=== PATIENT | male | born 1940 | race Caucasian/White ===

== ENCOUNTER 2017-04-05 17:06 | Inpatient (IN) ==
--- NOTE | 2017-04-05 17:37 | Emergency Department Report ---
SOB HPI - General Chief Complaint: Shortness of Breath/Dyspnea Stated Complaint: SOA Time Seen by Provider: 04/05/17 17:18 Source: patient Mode of arrival: ambulatory Limitations: no limitations - History of Present Illness He has a history of MDS. Had labs drawn yesterday and Hgb was 6.9. He was offered to get a blood transfusion but he states that he was feeling fine at that time so he declined. Today he was walking out of his office and felt light headed and SOA and like he was going to fall. He came to ER for evaluation. Does not have any other symptoms at this time. MD Complaint: shortness of breath Onset (ago): hour(s) Severity: moderate Consistency/Duration: constant Relieving factors: rest Exacerbating factors: exertion Associated symptoms: denies other symptoms Treatment prior to arrival: none - Related Data Home Medications Medication Instructions Recorded Confirmed Aspirin [Aspir 81] 81 mg PO DAILY #0 10/07/16 04/05/17 Ferrous Sulfate 325 mg PO BIDWM #0 10/07/16 04/05/17 Insulin Detemir [Levemir Flextouch] 10 unit SQ HS #0 10/07/16 04/05/17 Lisinopril 2.5 mg PO DAILY #0 10/07/16 04/05/17 Pnv95/Ferrous Fumarate/FA 1 tab PO DAILY #0 10/07/16 04/05/17 [ Tablet] Levothyroxine Sodium 125 mcg PO DAILY 04/05/17 04/05/17 Simvastatin 20 mg PO HS 04/05/17 04/05/17 Previous Rx's Medication Instructions Recorded metformin 1,000 mg tablet 1,000 mg PO BIDWM #180 tab 03/30/17 Allergies Allergy/AdvReac Type Severity Reaction Status Date / Time No Known Drug Allergies Allergy Mild Verified 04/05/17 17:16 Review of Systems Constitutional: Reports: weakness. Denies: fever, chills Cardiovascular: Reports: dyspnea on exertion. Denies: chest pain, palpitations , edema Respiratory: Reports: dyspnea. Denies: cough, wheezes Gastrointestinal: Denies: abdominal pain, nausea, vomiting, diarrhea Integumentary: Denies: rash Neurological: Denies: headache, weakness, numbness, paresthesias [facility] Patient Stated Medical History Cataracts Yes Diabetes Mellitus Type 2 Yes Other Hematologic Yes: [facility] Medical History Granuloma annulare (Chronic Medical) Hypothyroidism (Chronic Medical) HTN (hypertension) (Chronic Medical) Hyperlipidemia (Chronic Medical) Diabetes (Chronic Medical) Waldenstrom Macroglobinemia Surgical History: TONSILLECTOMY. LEFT HIP SURGERY-1991. CATARACT SURGERY (both ). Right acetabular ORIF (01/15)--Dr. Ruff Family History: Family History Mother Diabetes Father Heart disease Brother Cancer - Social History Smoking status: Never smoker Physical Exam - Limitations Limitations: no limitations - General General appearance: alert, in no apparent distress - Normal Exams: Neck:: Full range of motion, without adenopathy, JVD, bruits or thyromegaly Chest/Respirations:: Clear all ruano, with good airflow, and symmetry bilaterally Cardiovascular:: Regular rate and rhythm, without murmur or gallop, Pulses 2+ all extremities, capillary refill, <2 seconds all extremities Abdomen:: Bowel sounds positive, soft, non-tender, non-distended, no hepatosplenomegaly, masses or bruits noted Lymphatic:: No lymphadenopathy, or lymphedema noted Integumentary:: No rashes, hives, or bruising noted Neurological:: Patient is alert, and oriented Psychiatric:: Patient exhibits, appropriate attention, emotion and affect - Skin Skin exam: Present: other (pale) Course Vital Signs Temperature 98.2 F 04/05/17 17:10 Pulse Rate 63 04/05/17 17:10 Respiratory Rate 22 04/05/17 17:10 Blood Pressure 140/63 H 04/05/17 17:10 Pulse Oximetry 100 04/05/17 17:10 Temperature 98.2 F 04/05/17 17:10 Pulse Rate 55 L 04/05/17 20:45 Respiratory Rate 22 04/05/17 17:10 Blood Pressure 130/58 04/05/17 20:30 Pulse Oximetry 100 04/05/17 20:45 Shortness of Breath/Dyspnea - [facility] Narrative Medical decision making narrative: DD: anemia, dyspnea, pneumonia, pneumo, PE His hgb today is 6.6. Vital are stable. Labs otherwise are negative. I did talk with Dr Duckworth and he does agree patient needs blood transfusion. He is ok with outpatient infusion. Will write the orders and then patient can go home. Calcium did come back elevated at 13.6. Last Calcium was taken in early February and was 10.2. Did talk with Dr Duckworth about this and he would like patient admitted. Spoke with Dr Noriega and he will admit at this time. - Lab Data Attestation: I reviewed the patient's lab results. Result diagrams: 04/05/17 17:46 04/05/17 17:46 Lab Results 04/05/17 04/05/17 04/05/17 Range/Units 17:46 17:46 18:36 WBC 4.4 L (4.5-11.0) T/MM3 RBC 1.99 L (4.50-5.90) M/MM3 Hgb 6.6 L (13.5-17.5) GM/DL Hct 21.8 L (41-53) % MCV 109.5 H (80-100) UM3 MCH 33.2 (26-34) UUG MCHC 30.3 L (31-37) GM/DL RDW Std Deviation 67.7 H (36.9-50.2) FL Plt Count 158 (130-400) T/MM3 MPV 10.7 (9.4-12.4) UM3 Immature Gran % (Auto) 1.4 H (0.0-0.5) % Neut % (Auto) 53.0 (33-66) % Lymph % (Auto) 24.3 (23-45) % [place] % (Auto) 18.5 H (0-9.0) % Eos % (Auto) 2.1 (0-4) % Baso % (Auto) 0.7 (0-2) % Neut # 2.3 (1.8-7.7) T/MM3 Lymph # 1.1 (1-4.8) T/MM3 [place] # 0.8 (0-0.8) T/MM3 Eos # 0.1 (0-0.5) T/MM3 Baso # 0.0 (0-0.2) T/MM3 Abs Immat Gran (auto) 0.06 H (0.00-0.03) T/MM3 Turbidity < 20 (0-20) Sodium 140 (134-144) MEQ/L Potassium 4.0 (3.6-5) MEQ/L Chloride 103 (98-107) MEQ/L Carbon Dioxide 29 (22-30) MEQ/L Anion Gap 8 (5-15) MEQ/L BUN 26.0 H (9-20) MG/DL Creatinine 1.3 (0.8-1.5) MG/DL GFR Calculation 54 BUN/Creatinine Ratio 20 (6-26) RATIO Glucose 124 H (75-110) MG/DL Calculated Osmolality 275 (261-280) MOSM/KG Calcium 13.5 H* (8.4-10.2) MG/DL Icterus Index < 2 (0-7) Specimen Hemolysis < 15 (0-25) Ur Collection Type Urine, clean catch Urine Color Yellow (YELLOW) Urine Clarity Clear Urine pH 7.0 (5.0-8.0) Ur Specific [place] 1.015 (1.015-1.025) Urine Protein Negative (NEGATIVE) Urine Glucose (UA) Negative (NEGATIVE) Urine Ketones Negative (NEGATIVE) Urine Occult Blood Negative (NEGATIVE) Urine Nitrate Negative (NEGATIVE) Urine Bilirubin Negative (NEGATIVE) Urine Urobilinogen 1.0 (NORMAL) EU/DL Ur Leukocyte Esterase Negative (NEGATIVE) Urinalysis Comment Microscopic not ind. Blood Type Antibody Screen Crossmatch (AHG) 04/05/17 Range/Units 19:02 WBC (4.5-11.0) T/MM3 RBC (4.50-5.90) M/MM3 Hgb (13.5-17.5) GM/DL Hct (41-53) % MCV (80-100) UM3 MCH (26-34) UUG MCHC (31-37) GM/DL RDW Std Deviation (36.9-50.2) FL Plt Count (130-400) T/MM3 MPV (9.4-12.4) UM3 Immature Gran % (Auto) (0.0-0.5) % Neut % (Auto) (33-66) % Lymph % (Auto) (23-45) % [place] % (Auto) (0-9.0) % Eos % (Auto) (0-4) % Baso % (Auto) (0-2) % Neut # (1.8-7.7) T/MM3 Lymph # (1-4.8) T/MM3 [place] # (0-0.8) T/MM3 Eos # (0-0.5) T/MM3 Baso # (0-0.2) T/MM3 Abs Immat Gran (auto) (0.00-0.03) T/MM3 Turbidity (0-20) Sodium (134-144) MEQ/L Potassium (3.6-5) MEQ/L Chloride (98-107) MEQ/L Carbon Dioxide (22-30) MEQ/L Anion Gap (5-15) MEQ/L BUN (9-20) MG/DL Creatinine (0.8-1.5) MG/DL GFR Calculation BUN/Creatinine Ratio (6-26) RATIO Glucose (75-110) MG/DL Calculated Osmolality (261-280) MOSM/KG Calcium (8.4-10.2) MG/DL Icterus Index (0-7) Specimen Hemolysis (0-25) Ur Collection Type Urine Color (YELLOW) Urine Clarity Urine pH (5.0-8.0) Ur Specific [place] (1.015-1.025) Urine Protein (NEGATIVE) Urine Glucose (UA) (NEGATIVE) Urine Ketones (NEGATIVE) Urine Occult Blood (NEGATIVE) Urine Nitrate (NEGATIVE) Urine Bilirubin (NEGATIVE) Urine Urobilinogen (NORMAL) EU/DL Ur Leukocyte Esterase (NEGATIVE) Urinalysis Comment Blood Type O Positive Antibody Screen Negative Crossmatch (AHG) See Detail Disposition Clinical Impression: Anemia Qualifiers: Anemia type: unspecified type Qualified Code(s): D64.9 - Anemia, unspecified Disposition: 02 To [facility] Acute Care Condition: Stable Time of Disposition: 20:11 - Seen By: lizette
[2017-04-05] MEDS: SALINE FLUSH 10ml SYRINGE IVF PRN ×2 (17:40→21:49)
[2017-04-05] MEDS: NS 1,000 ML IV SCH (18:56)
[2017-04-05] MEDS ORDERED: ACETAMINOPHEN 325 MG TABLET PO PRN (21:03)
[2017-04-05] MEDS ORDERED: ONDANSETRON 4 MG/2 ML INJECTION IVP PRN (21:03)
[2017-04-05] MEDS ORDERED: NS FLUSH BAG 500ml IV PRN (21:31)
[2017-04-05] MEDS: NS FLUSH BAG 500ml IV PRN (21:48)
[2017-04-05 22:15] VITALS: BMI 22.5
--- NOTE | 2017-04-05 23:14 | History & Physical Report ---
<Vimal Noriega - Last Filed: 04/05/17 23:11> History of Present Illness Date: 04/05/17 Chief complaint: weak and short of breath HPI: This is a very nice 76 y/o male who is currently being followed by oncology for myelodysplastic syndrome The patient had lab work done yesterday with hg of 6.9 and was advised to get a blood transfusion. The patient respectfully declined and today had onset of dizziness and shortness of breath. Because of these prpogression of symptoms the patient presented to the ED and repeat labs demonstrated a hg of 6.6. Of greater concern was that his calcium was now 13.5. It turns out after further investigation by ED staff that this patient was recently diagnosed with Waldenstroms Macroglobuminemia. The patient at this time is to be admitted to address his anemia and his WM. Review of Systems Review of systems: no headache, no change in vision, no neck pain, no chest pain, is short of breath with any activity, no cough, no fever, chills or sweats, no abdomen pain , slight nausea without emesis, no change in bowel or bladder, no edema to legs , no focal neuro complatints, just profound weakness. a 10 point ROS otherwise negatie excpet for outlined above. [facility] Patient Stated Medical History Cataracts Yes Bronchitis Yes Diabetes Mellitus Type 2 Yes Other Hematologic Yes: [facility] Medical History Granuloma annulare (Chronic Medical) Hypothyroidism (Chronic Medical) HTN (hypertension) (Chronic Medical) Hyperlipidemia (Chronic Medical) Diabetes (Chronic Medical) Surgical History: TONSILLECTOMY. LEFT HIP SURGERY-1991. CATARACT SURGERY (both ). Right acetabular ORIF (01/15)--Dr. Ruff Family History: Family History Mother Diabetes Father Heart disease Brother Cancer - Social History Smoking status: Never smoker Substance use type: does not use Alcohol intake: former Alcohol intake frequency: former alcohol drinker Housing: house Household members: spouse Current occupational status: employed Current occupational exposures/hazards: No Does patient use chewing tobacco?: No Current residence: Apartment/Private Home Medications Home Medications Medication Instructions Recorded Confirmed Type Aspirin [Aspir 81] 81 mg PO DAILY #0 10/07/16 04/05/17 History Ferrous Sulfate 325 mg PO BIDWM #0 10/07/16 04/05/17 History Insulin Detemir [Levemir Flextouch] 10 unit SQ HS #0 10/07/16 04/05/17 History Lisinopril 2.5 mg PO DAILY #0 10/07/16 04/05/17 History Pnv95/Ferrous Fumarate/FA 1 tab PO DAILY #0 10/07/16 04/05/17 History [ Tablet] Levothyroxine Sodium 125 mcg PO DAILY 04/05/17 04/05/17 History Simvastatin 20 mg PO HS 04/05/17 04/05/17 History Allergies Allergy/AdvReac Type Severity Reaction Status Date / Time No Known Drug Allergies Allergy Mild Verified 04/05/17 17:16 Exam Vital Signs: Temperature 97.7 F 04/05/17 21:20 Pulse Rate 55 L 04/05/17 22:29 Respiratory Rate 18 04/05/17 22:29 Blood Pressure 127/58 04/05/17 21:20 Pulse Oximetry 99 04/05/17 22:29 Telemetry Rhythm: Sinus Rhythm Height/Weight/BMI: Height 1.78 m Weight 71.3 kg Body Mass Index 22.5 Comments: well developed well nourished male in mild distress appearing his stated age - Constitutional Present: mild distress, well nourished, well developed, average body habitus, cooperative - Routine HEENT Exam Head: Present: normocephalic, atraumatic Eye: Present: EOMI ENT: Present: mucous membranes dry - Routine Neck Exam Present: supple, full ROM - Routine Respiratory Exam Present: CTA bilaterally - Routine Cardiovascular Exam Present: RRR, no murmur - Routine Abdominal Exam Present: soft, normoactive bowel sounds - Routine Extremities Exam Present: no edema, full ROM - Routine Back/Spine/Pelvis Exam Back/Spine: Present: full ROM - Routine Skin Exam Present: intact, warm - Routine Neurological Exam Present: oriented X3, CN II-XII intact, moving all extremities. Absent: sensory deficit, motor deficit, altered mental status - Routine Psychiatric Exam Present: normal affect Results - Labs CBC & Chem 7: 04/05/17 17:46 04/05/17 17:46 Labs: reviewed and will be discussed below Assessment and Plan (1) MDS (myelodysplastic syndrome) Current visit: Yes Status: Acute 04/05/17 23:23 pateint with MDS under evaluation and treatment by local oncologist, patient is anemic secondary to this disease and will be discussed below (2) Anemia Current visit: Yes Status: Acute 04/05/17 23:24 patient's anemia is most likely a reflection of his MDS. typically only transfuse one unit at a time with his hg 6.6 and sig symptms will proceed with 2 units. repeat labs in am. no evidence to support acute gi blood loss. (3) Hypercalcemia of malignancy Current visit: Yes Status: Acute 04/05/17 23:25 this patient is recently diagnosed with Waldenstroms Macroglobulinemia. This is known to result in hypercalcemia. At this time scottie agressively hydrate overnight. repeat labs in the am. Anticipate the need for pamidronate but will let oncology recommend. (4) Waldenstrom macroglobulinemia Current visit: Yes Status: Acute 04/05/17 23:26 recently diagnosed, per onclolgy (5) DM type 2 (diabetes mellitus, type 2) Current visit: Yes Status: Acute 04/05/17 23:26 correctional plan for now. adjust therapy basedon needs. (6) Acute kidney injury Current visit: Yes Status: Acute 04/05/17 23:27 patient with increased cratinine, hydrate and repeat labs in the am. will try to determine baseline creatine. DVT Prophylaxis: SCD's GI Prophylaxis: Protonix Hospital Course Summary Disclaimer: The visit summary below is not to be considered part of the above Progress Note. <Bj Khan - Last Filed: 04/06/17 15:06> History of Present Illness Date: 04/06/17 [facility] Patient Stated Medical History Cataracts Yes Bronchitis Yes Diabetes Mellitus Type 2 Yes Other Hematologic Yes: [facility] Medical History Granuloma annulare (Chronic Medical) Hypothyroidism (Chronic Medical) HTN (hypertension) (Chronic Medical) Hyperlipidemia (Chronic Medical) Diabetes (Chronic Medical) Family History: Family History Mother Diabetes Father Heart disease Brother Cancer Exam Vital Signs: Temperature 96.8 F 04/06/17 07:32 Pulse Rate 53 L 04/06/17 08:00 Respiratory Rate 17 04/06/17 07:32 Blood Pressure 120/54 04/06/17 07:32 Pulse Oximetry 99 04/06/17 07:32 Height/Weight/BMI: Height 1.78 m Weight 71.3 kg Body Mass Index 22.5 Results - Labs CBC & Chem 7: 04/06/17 04:52 04/06/17 04:52 Assessment and Plan (1) Anemia Current visit: Yes Status: Acute (2) MDS (myelodysplastic syndrome) Current visit: Yes Status: Acute (3) Hypercalcemia of malignancy Current visit: Yes Status: Acute (4) Waldenstrom macroglobulinemia Current visit: Yes Status: Acute (5) DM type 2 (diabetes mellitus, type 2) Current visit: Yes Status: Acute (6) Acute kidney injury Current visit: Yes Status: Acute Resuscitation Status: Full Code Assessment and Plan: Have independently interviewed and examined pt. Chart reviewed. Reviewed above note and concur. CC: Weakness, dizziness HPI: 76 y/o male presents to ED secondary to weakness and dizziness. Was found to have MDS earlier this summer-report had anemia and went for a transfusion. On follow up from transfusion, hemoglobin not improved. Referred by Dr Jacobsen to Dr Dickens for oncological evaluation. MDS/Waldenstrom found. Had routine CBC on 04/04 - hemoglobin decreased to 6.9 at that time. Transfusion offered, but patient decline as was feeling well. The next day (04/05), patient started feeling more dizzy, worse with positional changes. Evaluated in ED - hemoglobin still low at 6.6, but serum calcium found to be high at 13.5. Previously calcium level was normal at 10.2. Admission recommended due to acute anemia and hypercalcemia of malignancy. Pt does note he has been feeling progressively more weak and SOA for the past few week. Nothing dramatic, really didn't feel much change. Denies cough, congestion, pain with breathing or sputum. No chest pressure, heaviness, pain, or palpitations. Denies LE edema. No nausea, ab pain, blood in stools or dark tarry sticky stools. Feels appetite normal, but reports his has commented he is eating less. No unilateral weakness or numbness. Vision/hearing stable. Urinating well with pain. PHMx: Type II DM, HTN, HDL, Hypothyroidism, MDS, Waldenstrom macroglobulinemia Allergies: NKDA Meds: see mar SHx: for 53 years. Lives in [place]. Quit smoking [address] Jacobsen PCP. FHx: Father at age 97 - had heart disease. Mother in MVA at age 77 - had DM ROS: as above. Remainder of 10 point ROS reviewed and negative. Exam Gen: WDWNWM Converses well. HEENT: NC/AT PERRLA EMOI no scleral icterus MMM Neck: supple, trachea midline, no rigidity Lungs: decreased bilaterally but normal air movement. No crackle or wheeze. Breaths comfortably on RA without distress CV: regular without murmur AB: soft nt/nd +BS EXT: no LE edema. Normal radial pulses bilaterally Skin: warm and dry MS: normal muscle mass and tone Neurological: CN II-XII intact. No focal deficits Psych: awake alert appropriate. Slight slowing of answers. No agitation or restlessness. Thoughts linear, converses well. Very pleasant to visit with. Lab: reviewed. Assessment Symptomatic anemia with HGB 6.6 Weakness - secondary to hypercalcemia and anemia Hypercalcemia of malignancy MDS Waldenstrom macroglobulinemia Type II DM HTN HDL Hypothyroidism Plan Inpatient admission secondary to anemia and hypercalcemia - anticipate greater than 2 midnights of care needed. Type cross and give 2 units pRBC secondary to significant anemia and MDS NS at 125cc/hr secondary to hypercalcemia. Monitor sugars SCD for DVT prevention Care to return to Dr Jacobsen at discharge. 04/06 Hemoglobin improve to 8.1 post transfusion. Sodium decreased to 12.5. Dr Dickens consulted - initiated Zometa to help decrease calcium. Bone survey obtained with is negative. Continue with IVF. Will hold on lisinopril currently as BP low normal. Restart metformin and simvastatin. Monitor blood counts and serum calcium. - Time spent with patient greater than 35 minutes Hospital Course Summary Disclaimer: The visit summary below is not to be considered part of the above Progress Note. Hospital Course: 04/05/14 - Inpatient admission Assessment Symptomatic anemia with HGB 6.6 Weakness - secondary to hypercalcemia and anemia Hypercalcemia of malignancy MDS Waldenstrom macroglobulinemia Type II DM HTN HDL Hypothyroidism Plan Inpatient admission secondary to anemia and hypercalcemia - anticipate greater than 2 midnights of care needed. Type cross and give 2 units pRBC secondary to significant anemia and MDS NS at 125cc/hr secondary to hypercalcemia. Monitor sugars SCD for DVT prevention Care to return to Dr Jacobsen at discharge. 04/06/17 Hemoglobin improve to 8.1 post transfusion. Sodium decreased to 12.5. Dr Dickens consulted - initiated Zometa to help decrease calcium. Bone survey obtained with is negative. Continue with IVF. Will hold on lisinopril currently as BP low normal. Restart metformin and simvastatin. Monitor blood counts and serum calcium.
[2017-04-06] MEDS: NS 1,000 ML IV SCH ×8 (04:23→20:43)
--- NOTE | 2017-04-06 08:01 | XRay Report ---
INDICATION: dyspnea PROCEDURE: CHEST 2-VIEWS UPRIGHT (PA & LAT) Encounter: Initial COMPARISON: None FINDINGS: The lungs are clear without evidence of focal abnormal airspace opacity. There is no pleural effusion or pneumothorax. Slight increased lucency in the right upper lung field. The heart size, mediastinal contours and pulmonary vascularity are within normal limits. Old healed fourth, fifth and sixth left posterior rib fractures. IMPRESSION: No acute cardiopulmonary disease. Possible emphysema. .
[2017-04-06] MEDS: ASPIRIN *EC* 81 MG TABLET PO SCH (08:22)
[2017-04-06] MEDS: LEVOTHYROXINE 125 MCG TABLET PO SCH (08:22)
[2017-04-06] MEDS ORDERED: ZOLEDRONIC ACID 4 MG/100 ML BAG IV ONE (10:44)
--- NOTE | 2017-04-06 11:57 | XRay Report ---
Indication: hypercalcemia and Waldenstrom PROCEDURE: XR bone survey, 1 yr to adult: Encounter: Initial Comparison: None Findings: AP and lateral views of the skull: No acute fracture. No lytic or blastic osseous lesions. AP and lateral views of the cervical spine: No acute fracture. Mild to moderate degenerative disk disease in the mid cervical spine. No lytic or blastic osseous lesions. AP and lateral views of the thoracic spine: No acute fracture or subluxation. No obvious lytic or blastic lesions. AP and lateral views of the lumbar spine: No acute fracture. Chronic L3 and L4 mild compression fractures. No obvious lytic lesion. AP view of the pelvis: Extensive bilateral iliac bone hardware. No gross lytic lesion. Old fractures. AP view of the right ribs: No acute displaced rib fracture. No lytic or blastic rib lesion. AP view of the left ribs: Old third through fifth posterior rib fractures. No acute fracture or obvious rib lesion. AP view of the right humerus: No acute fracture. No lytic lesions. AP view of the left humerus: No acute fracture. No lytic lesion. AP view of the right forearm: No acute fracture. No lytic lesion. AP view of the left forearm: No acute fracture. No lytic lesion. AP views of the right femur: No acute fracture. No lytic lesion. AP views of the left femur: No acute fracture. No lytic lesion. AP view of the right tibia and fibula: No acute fracture. No lytic lesion. AP view of the left tibia and fibula: No acute fracture. No lytic lesion. Impression: Negative skeletal survey. No lytic or blastic osseous metastatic disease seen. .
--- NOTE | 2017-04-06 15:12 | Consultation ---
CHIEF COMPLAINT Dizziness. HISTORY OF PRESENT ILLNESS This is a 76-year-old pleasant male patient with history of chronic anemia. His hemoglobin was in the range of 6-7. He was given blood transfusion. Workup for the anemia revealed a diagnosis of Waldenstrom macroglobulinemia. 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 His IgM was 2300. He presented yesterday with lightheadedness and a syncopal episode. His hemoglobin was down to 6.6. He was offered blood transfusion when his hemoglobin was 6.9, but he chose to wait. Unfortunately, today, he felt very weak and fainted. He was given two units of packed red cells and his hemoglobin went up to 8.1 with improvement of his energy. His lab showed high calcium of 13. Creatinine was 1.3. He was started on hydration - normal saline. Calcium is down to 12. He denies seizure. He has constipation. PAST MEDICAL HISTORY 1. Hypertension. 2. Dyslipidemia. 3. Diabetes mellitus. 4. Hypothyroidism. MEDICATION 1. Lisinopril 2.5 mg daily. 2. Metformin 1,000 mg twice a day. 3. Insulin. 4. Aspirin. 5. Levothyroxine 125 mcg daily. 6. Simvastatin 20 mg q.h.s. ALLERGIES No known drug allergies. SOCIAL HISTORY Nonsmoker. He has very good family support. He lives with his . REVIEW OF SYSTEMS GENERAL: He is very weak and tired, has improved since blood transfusion. RESPIRATORY: Shortness of breath during exertion, improved with blood transfusion. CARDIOVASCULAR: No chest pain. No palpitations. 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 No weakness or numbness in the extremities. GI: He has constipation. No nausea or vomiting. : No urinary symptoms. PHYSICAL EXAM GENERAL: He looks pale. He is not icteric. Not in acute distress. Seems comfortable sitting in a chair for his breakfast. LUNGS: Clear to auscultation. No wheezing. No crackles. CARDIOVASCULAR: No JVD. No murmur. ABDOMEN: Benign. No organomegaly. No masses. LYMPH SYSTEM: No cervical, supraclavicular, axillary or inguinal adenopathy. EXTREMITIES: No edema. SKIN: No rash. HEENT: Unremarkable. LAB CBC remarkable for hemoglobin of 6.6, up to 8.1 after transfusion. White count 4.1. Platelets normal. Creatinine 1.3. Calcium was 13, down to 12 with hydration. IgM 2300. IMAGING Chest x-ray negative. ASSESSMENT 1. Waldenstrom macroglobulinemia associated with severe symptomatic anemia and hypercalcemia. 2. 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 3. Comorbidities: Diabetes mellitus, hypertension and hypothyroidism. RECOMMENDATION AND PLAN 1. Blood transfusion as needed. 2. Continue normal saline hydration for the hypercalcemia. 3. Will give the patient Zometa IV x 1. 4. Close monitoring of electrolytes. 5. A skeletal survey. 6. The patient is scheduled for a CT scan of the chest, abdomen and pelvis as staging for the Waldenstrom. Will do the CT scan as outpatient to avoid giving him contrast during the hypercalcemia. 7. Will check parathyroid hormone and PTH-like peptide. 8. Will check cryoglobulins. MTDD
[2017-04-06] MEDS: METFORMIN 1,000 MG TABLET PO SCH (18:47)
[2017-04-06] MEDS: ASCORBIC ACID 500 MG TABLET PO SCH (18:47)
[2017-04-06] MEDS: FERROUS SULFATE 324 MG TABLET PO SCH (18:47)
[2017-04-06] MEDS: SIMVASTATIN 20 MG TABLET PO SCH (20:21)
[2017-04-06] MEDS: INSULIN ASPART 100unit/ml INJECTION SQ PRN (20:31)
[2017-04-06] MEDS: HYDROCODONE/APAP 5mg/325mg TABLET PO PRN (23:04)
[2017-04-07] MEDS: HYDROMORPHONE 2 MG/ML INJECTION IVP PRN ×2 (02:54→21:06)
[2017-04-07] MEDS: NS 1,000 ML IV SCH ×3 (04:43→21:13)
[2017-04-07] MEDS: LEVOTHYROXINE 125 MCG TABLET PO SCH (06:29)
[2017-04-07] MEDS: ASPIRIN *EC* 81 MG TABLET PO SCH (09:10)
[2017-04-07] MEDS: ASCORBIC ACID 500 MG TABLET PO SCH ×2 (09:10→17:15)
[2017-04-07] MEDS: FERROUS SULFATE 324 MG TABLET PO SCH ×2 (09:10→17:15)
[2017-04-07] MEDS: METFORMIN 1,000 MG TABLET PO SCH ×2 (09:10→17:15)
[2017-04-07] MEDS: INSULIN ASPART 100unit/ml INJECTION SQ PRN (15:31)
--- NOTE | 2017-04-07 18:57 | Progress Note ---
Subjective: Mr. Ward reports no dyspnea or exertional dyspnea today-improvement from a couple of days ago. He denied chest pain or palpitations. He is having some minor constipation but denied nausea. He describes some generalized achiness. He continues to feel slightly lightheaded intermittently and fatigued. He had difficulty urinating earlier rank straight catheterization but subsequently patient has had complete emptying of his bladder with minimal post void residuals. Nursing describes some restlessness and minor confusion overnight. Objective Vital signs: Temperature 98 F 04/07/17 15:22 Pulse Rate 56 L 04/07/17 16:00 Respiratory Rate 24 04/07/17 15:22 Blood Pressure 105/52 04/07/17 15:22 Pulse Oximetry 99 04/07/17 15:22 I/O 4135/1475 EXAM General-NAD, alert, cooperative HEENT-oropharynx clear, conjunctiva clear Lungs-respirations nonlabored, good airflow, breath sounds clear Cardiac-regular rhythm, S1-S2, 2/6 systolic murmur upper sternal borders Abd-soft, nontender, bowel sounds present Ext-without edema Skin-generalized pallor Neuro-MAEW - Height/Weight/BMI: Height 1.78 m Weight 73.8 kg Body Mass Index 22.5 Results - Labs CBC & Chem 7: 04/07/17 08:40 04/07/17 08:40 Labs: Calcium 9.1, phosphorus 2.3, magnesium 1.9 - Imaging and Cardiology skeletal survey Status: image reviewed by me ( present; radiology reports chronic compression fractures in the lumbar spine, old rib fractures, and degenerative disc disease. ) Assessment and Plan (1) Anemia Current visit: Yes Status: Acute (2) MDS (myelodysplastic syndrome) Current visit: Yes Status: Acute (3) Hypercalcemia of malignancy Current visit: Yes Status: Acute (4) Waldenstrom macroglobulinemia Current visit: Yes Status: Acute DVT Prophylaxis: SCD's Resuscitation Status: Full Code Assessment and Plan: Assessment: Symptomatic anemia with HGB 6.6 Weakness - secondary to hypercalcemia and anemia Hypercalcemia of malignancy MDS Waldenstrom macroglobulinemia Type II DM HTN HDL Hypothyroidism Urinary retention, transient Plan: Hemoglobin stable following transfusion of 2 units PRBC yesterday. Creatinine improved with hydration, calcium remains elevated but improving compared to admission. Continue IV fluids overnight and reassess electrolytes and hemoglobin in the morning. Discussed with Dr. Dickens-remainder of workup/therapy will be pursued as an outpatient. Blood sugars modestly elevated ranging from 123-188 today. Levemir remains on hold but corrective scale insulin available. Blood pressure stable. Small-volume urinary frequency reported earlier with associated urinary retention; straight catheter 1 and since that time voiding well. If hemoglobin stable and calcium improving further tomorrow morning anticipate discharge at that time. Laboratory data reviewed, skeletal survey and telemetry reviewed by myself, discussed with Dr. Dickens and nursing. Sepsis Assessment - Evaluation Sepsis screening result: No Definite Risk Hospital Course Summary Disclaimer: The visit summary below is not to be considered part of the above Progress Note. Hospital Course: 04/05/14 - Inpatient admission Assessment Symptomatic anemia with HGB 6.6 Weakness - secondary to hypercalcemia and anemia Hypercalcemia of malignancy MDS Waldenstrom macroglobulinemia Type II DM HTN HDL Hypothyroidism Plan Inpatient admission secondary to anemia and hypercalcemia - anticipate greater than 2 midnights of care needed. Type cross and give 2 units pRBC secondary to significant anemia and MDS NS at 125cc/hr secondary to hypercalcemia. Monitor sugars SCD for DVT prevention Care to return to Dr Jacobsen at discharge. 04/06/17 Hemoglobin improve to 8.1 post transfusion. Sodium decreased to 12.5. Dr Dickens consulted - initiated Zometa to help decrease calcium. Bone survey obtained with is negative. Continue with IVF. Will hold on lisinopril currently as BP low normal. Restart metformin and simvastatin. Monitor blood counts and serum calcium. 04/07/17 Hemoglobin stable following transfusion of 2 units PRBC yesterday. Creatinine improved with hydration, calcium remains elevated but improving compared to admission. Continue IV fluids overnight and reassess electrolytes and hemoglobin in the morning. Discussed with Dr. Dickens-remainder of workup/therapy will be pursued as an outpatient. Blood sugars modestly elevated ranging from 123-188 today. Levemir remains on hold but corrective scale insulin available. Blood pressure stable. Small-volume urinary frequency reported earlier with associated urinary retention; straight catheter 1 and since that time voiding well. If hemoglobin stable and calcium improving further tomorrow morning anticipate discharge at that time.
[2017-04-07] MEDS: SALINE FLUSH 10ml SYRINGE IVF PRN (21:06)
[2017-04-07] MEDS: SIMVASTATIN 20 MG TABLET PO SCH (21:07)
[2017-04-08] MEDS: HYDROMORPHONE 2 MG/ML INJECTION IVP PRN ×2 (00:56→06:14)
[2017-04-08] MEDS: INSULIN ASPART 100unit/ml INJECTION SQ PRN ×3 (02:04→14:29)
[2017-04-08] MEDS: NS 1,000 ML IV SCH (05:02)
[2017-04-08] MEDS: LEVOTHYROXINE 125 MCG TABLET PO SCH (06:17)
[2017-04-08] MEDS: FERROUS SULFATE 324 MG TABLET PO SCH (08:44)
[2017-04-08] MEDS: METFORMIN 1,000 MG TABLET PO SCH (08:44)
[2017-04-08] MEDS: ASCORBIC ACID 500 MG TABLET PO SCH (08:44)
[2017-04-08] MEDS: ASPIRIN *EC* 81 MG TABLET PO SCH (08:44)
[2017-04-08] MEDS ORDERED: NS FLUSH BAG 500ml IV PRN (09:47)
[2017-04-08 12:08] VITALS: RESP 16
[2017-04-08] MEDS: NS FLUSH BAG 500ml IV PRN (12:08)
[2017-04-08] MEDS ORDERED: BISACODYL 10 MG SUPPOSITORY RECTALLY ONE (13:36)
[2017-04-08] MEDS ORDERED: BISACODYL 10 MG SUPPOSITORY RECTALLY PRN (13:37)
[2017-04-08] MEDS: HYDROCODONE/APAP 5mg/325mg TABLET PO PRN (13:42)
[2017-04-08] MEDS ORDERED: POLYETHYL GLYCOL 3350 17gm PACKET PO SCH (13:45)
[2017-04-08 15:32] VITALS: BP 112/62; TEMP 96.9; O2SAT 99
[2017-04-08 15:50] VITALS: PULSE 68
--- NOTE | 2017-04-08 15:58 | Discharge Instructions ---
Discharge Plan - Med Rec/Dispo Referrals/Follow Up: Braulio Jacobsen DO [Family Provider] - 1 Week Krishan Dickens MD [Physician] - (His office will call you to schedule appointment when medication was available-he estimated it would be in 2-3 days) Prescriptions: New Ascorbic Acid [Vitamin C] 500 mg PO BIDWM tablet Polyethylene Glycol 3350 [Miralax] 17 gm PO DAILY #1 bottle Continue Lisinopril 2.5 mg PO DAILY #0 Insulin Detemir [Levemir Flextouch] 10 unit SQ HS #0 Pnv95/Ferrous Fumarate/FA [ Tablet] 1 tab PO DAILY #0 Aspirin [Aspir 81] 81 mg PO DAILY #0 Ferrous Sulfate 325 mg PO BIDWM #0 Simvastatin 20 mg PO HS Levothyroxine Sodium 125 mcg PO DAILY metformin 1,000 mg tablet 1,000 mg PO BIDWM #180 tab Discharge Instructions/Outpatient Orders: Final Provider Discharge Instructions Location: Determined By Patient - Disposition 01 Discharged Home, Self-Care
--- NOTE | 2017-04-08 16:06 | Discharge Summary ---
Discharge Information Date of admission: 04/05/17 20:36 Anticipated date of discharge: 04/08/17 Attending Physician: Bj Khan MD Primary care physician: Braulio Jacobsen DO Consults: Krishan Dickens - Procedures Procedures: Transfusion 3 units packed red blood cells - Laboratory Labs: 04/08/17 15:38 04/08/17 04:09 - Radiology Radiology: Chest x-ray on 04/05 demonstrated old healed left posterior rib fractures, possible emphysema, but no acute card or pulmonary disease. Osseous bone survey on 04/06/17 was negative for lytic or blastic metastatic disease. Incidental notations for degenerative disc disease in the cervical spine, chronic L3 and L4 compression fractures, old pelvic fractures with extensive bilateral iliac hardware, and old left rib fractures were made. History of Present Illness HPI: This is a very nice 76 y/o male who is currently being followed by oncology for myelodysplastic syndrome The patient had lab work done yesterday with hg of 6.9 and was advised to get a blood transfusion. The patient respectfully declined and today had onset of dizziness and shortness of breath. Because of these symptoms the patient presented to the ED and repeat labs demonstrated a hg of 6.6. Of greater concern was that his calcium was now 13.5. It turns out after further investigation by ED staff that this patient was recently diagnosed with Waldenstroms Macroglobuminemia. The patient at this time is to be admitted to address his anemia and his WM. Hospital Course This is a general summary of the patient's hospital course. For more details refer to the complete medical record. Hospital course: Assessment Symptomatic anemia with admission HGB 6.6 Weakness - secondary to hypercalcemia and anemia Hypercalcemia of malignancy Myelodysplastic syndrome Waldenstrom macroglobulinemia Type II DM HTN HDL Hypothyroidism Constipation Hospital course Inpatient admission secondary to anemia and hypercalcemia - anticipate greater than 2 midnights of care needed. Mr. Ward was admitted and treated with 2 units packed red blood cells initially with posttransfusion hemoglobin improving to 8.1. Hemoglobin drifted down to 7.4 on the morning of 04/08 and one additional unit of leuko-poor irradiated packed cells was given prior to discharge with hemoglobin of 8.2 following the third unit of packed cells. He was seen by Dr. Dickens during the hospitalization and hypercalcemia was treated with Zomata on 04/06 with progressive improvement in calcium over subsequent days. At discharge hemoglobin is 10.4. Remainder of electrolytes are unremarkable other than mild hypophosphatemia. Blood sugars were modestly elevated although it's noted that patient was not receiving his long-acting insulin during the hospitalization. This will resume at discharge. The patient's hospital course was complicated by a single episode of urinary retention requiring straight catheterization and some minor nocturnal confusion. He additionally complained of constipation for which MiraLAX was initiated. A Dulcolax suppository was administered on 04/08 with partial resolution of symptoms. The patient was felt stable for discharge after transfusion of the third unit of blood on 04/08. He reported ongoing fatigue but no exertional dyspnea or lightheadedness. He had no concerns other than residual constipation but indicated that his appetite was good. Patient is alert and cooperative. Respirations are nonlabored with good airflow and abdomen is benign. The patient is to follow up with Dr. Dickens on Sunday or Sunday of this week for repeat blood work and to initiate chemotherapy for Bárbara's terms. Electrolytes will need to be reassessed with follow-up hemoglobin to monitor calcium level. I've asked that he follow up with Dr. Jacobsen in approximately 1 week for reassessment of blood pressure and blood sugar control. Discharge medications reviewed with the patient and his . Lisinopril was held throughout the hospital course but was resumed at discharge due to diagnosis of diabetes. Discharge plans reviewed with Dr. Dickens. Time spent with patient: discharge greater than 30 minutes Discharge Plan - Med Rec/Dispo Referrals/Follow Up: Krishan Dickens MD [Physician] - (His office will call you to schedule appointment when medication was available-he estimated it would be in 2-3 days) Braulio Jacobsen DO [Family Provider] - 1 Week Miguel Instructions: Anemia (DC) Prescriptions: New Ascorbic Acid [Vitamin C] 500 mg PO BIDWM tablet Polyethylene Glycol 3350 [Miralax] 17 gm PO DAILY #1 bottle Continue Lisinopril 2.5 mg PO DAILY #0 Insulin Detemir [Levemir Flextouch] 10 unit SQ HS #0 Pnv95/Ferrous Fumarate/FA [ Tablet] 1 tab PO DAILY #0 Aspirin [Aspir 81] 81 mg PO DAILY #0 Ferrous Sulfate 325 mg PO BIDWM #0 Simvastatin 20 mg PO HS Levothyroxine Sodium 125 mcg PO DAILY metformin 1,000 mg tablet 1,000 mg PO BIDWM #180 tab Discharge Instructions/Outpatient Orders: Final Provider Discharge Instructions Location: Determined By Patient - Disposition 01 Discharged Home, Self-Care
== END 2017-04-08 16:16 | disposition home or self-care (01) | DRG 812 ==
LOC: ED 17:06 → MED 20:36
PROVIDERS: ADMIT Emergency Medicine; ATTEND Hospitalist